=== PATIENT | male | born 1945 | race Caucasian/White ===

== ENCOUNTER → 2016-08-08 | Outpatient (CLI) | payer MEDICARE, OTHER ==
[~2016-08-08] MED LIST: 3N1 COMMODE MC; ASPI-781 PO; BENA40TA41 PO; CPM MC; HYD25 PO; OXYC5CAP17 PO; ROSU5TAB5 PO
--- NOTE | 2016-08-08 11:09 | RADRPT ---
PROCEDURE: XR left knee. CLINICAL INDICATION: Knee pain. TECHNIQUE: AP weightbearing, lateral weightbearing and sunrise views are available for review. COMPARISON: 02/08/2016 FINDINGS: There is a total knee replacement. There is no evidence of loosening of the prosthesis. The osseous structures are normal in mineralization, architecture and alignment No acute fracture or dislocation is seen.No osseous lesions are identified. The soft tissues are unremarkable . there is a suprapat ellar joint effusion. There is vascular calcification. IMPRESSION: Unremarkable total knee replacement. Suprapatellar joint effusion RPTAT: HGDB .Jack Lopez MD, MD Date Time Electronically viewed and signed by .Jack Lopez MD, on 08/08/2016 11:08 .B/
== END | disposition home or self-care (01) ==
LOC: HKI 08:49
PROVIDERS: ATTEND Orthopaedic Surgery
DX: M17.11 Unilateral primary osteoarthritis, right knee (principal); M25.561 Pain in right knee; Z96.652 Presence of left artificial knee joint
CPT/HCPCS: 73562; G0463

== ENCOUNTER → 2016-10-22 | Outpatient (CLI) | payer MEDICARE, OTHER ==
[~2016-10-22] MED LIST changes: +ASPI325T4 PO; +HYDR-905 PO; +PANT40SU PO; +PREG50CA PO
--- NOTE | 2016-10-22 21:05 | RADRPT ---
PROCEDURE: XR bilateral lower extremities. CLINICAL INDICATION: Leg length discrepancy. TECHNIQUE: AP view of the bilateral femurs was obtained. COMPARISON: 08/06/2015 FINDINGS: Right femur length from femoral head to medial femoral condyle is 46.9 cm, previously 46.4 cm. Left femur length from femoral head to medial femoral condyle is 46.3 cm, previously 46.7 cm. There has been interval placement of left total knee arthroplasty prosthesis. Alignment is satisfactory. No evidence of hardware failure. There is no evidence of fracture or dislocation. The bony mineralization appears normal. IMPRESSION: 1. No significant leg length discrepancy involving the femurs. 2. No evidence of fracture or dislocation. 3. Interval placement of left total knee arthroplasty prosthesis with satisfactory alignment and wi thout evidence of hardware failure. 4. Moderate atherosclerotic peripheral vascular disease RPTAT: HLDM .Dani Murphy MD, MD Date Time Electronically viewed and signed by .Dani Murphy MD, on 10/22/2016 21:05 .M/
== END | disposition home or self-care (01) ==
LOC: HKI 09:27
PROVIDERS: ATTEND Orthopaedic Surgery
DX: Z01.818 Encounter for other preprocedural examination (principal); M25.761 Osteophyte, right knee; Z96.652 Presence of left artificial knee joint
CPT/HCPCS: 77073; G0463

== ENCOUNTER 2016-10-30 11:24 | Inpatient (IN) | payer MEDICARE, OTHER ==
[2016-10-22 11:53] VITALS: BMI 38.1
[2016-10-30] VITALS (23 sets, daily range): BP systolic 120–182; BP diastolic 60–100; PULSE 80–98; RESP 11–39; Ht 167.6 cm; Wt 107.0 kg
[~2016-10-30] VITALS: Ht 167.6 cm; Wt 107.0 kg
[~2016-10-30 11:24] MED LIST changes: -ASPI325T4 PO; +BUPIVACAINE LIPOSOME/PF 266 MG/20 ML VIAL INFIL ONE; +CEFAZOLIN 2GM/50 ML (PMX) 50 ML X1 BEFORE INCISION IVPB ONE; +CELECOXIB 400 MG PO X1 DOSE PO ONE; +ETOMIDATE 20 MG INJ ONE; -HYDR-905 PO; +PAIN COCKTAIL-CEFUROXIME IRR ONE; -PANT40SU PO; -PREG50CA PO; +PREGABALIN 300 MG PO X1 PO ONE; +PROPOFOL 1000 MG INJ ONE; +SOD CHLORIDE 0.9% IV ONE; +SOD CHLORIDE 0.9% IVPB ONE; +TRANEXAMIC ACID IV ONE; +TRANEXAMIC ACID IVPB ONE; +oxyCODONE (CR) 10 MG TAB [oxyCONTIN] X1 DOSE PO ONE; +traMADOL 50 MG TAB X 1 DOSE PO ONE
[2016-10-30] MEDS ORDERED: EXPAREL NOTE (BUPIVICAINE LIPOSOMAL) XX SCH (11:30)
[2016-10-30] MEDS ORDERED: GLYCOPYRROLATE 0.4 MG INJ ONE (13:47)
[2016-10-30] MEDS ORDERED: ROCURONIUM 50 MG INJ ONE (13:47)
[2016-10-30] MEDS ORDERED: NEOSTIGMINE 3 MG/3 ML SYRINGE ONE (13:47)
[2016-10-30] MEDS ORDERED: PROPOFOL 20 ML ONE (13:47)
[2016-10-30] MEDS ORDERED: CEFAZOLIN 1 GM INJ ONE (13:47)
[2016-10-30] MEDS ORDERED: MIDAZOLAM 1 MG/ML 2 ML INJ ONE (13:50)
[2016-10-30] MEDS ORDERED: FENTAnyl 50 MCG/ML VIAL ONE (13:50)
[2016-10-30] MEDS ORDERED: DEXAMETHASONE 4 MG/ML 1 ML INJ ONE (13:51)
[2016-10-30] MEDS ORDERED: ONDANSETRON 4 MG INJ ONE (13:51)
[2016-10-30] MEDS ORDERED: KETOROLAC 30 MG INJ ONE (14:18)
--- NOTE | 2016-10-30 14:22 | HPN ---
Date/Time of Note Date/Time of Note DATE: 10/30/16 TIME: 14:21 Interval H&P Admission Note Pt. seen H&P reviewed: No system changes No changes from H&P on 10/20/16 by TERESE Carvalho MD Oct 30, 2016 14:22
--- NOTE | 2016-10-30 14:28 | PDOCDIS ---
Discharge Instructions DIAGNOSIS Discharge Diagnosis: s/p right TKA CONDITION Patient Condition: Good HOME CARE INSTRUCTIONS: Diet Instructions: Regular ACTIVITY: Activity Restrictions: Slowly Increase Activity Rest between Activity Avoid heavy lifting Do not operate Machinery Do not operate Power Tool Avoid Heavy Housework Keep Limb Elevated Weight Bearing Bathing Restrictions: Shower FOLLOW UP/APPOINTMENTS Appointments follow up in the office on 11/10/16 OTHER ORDERS: Other Orders: S/P TKA Physical Therapy: Three times per week at home x 2 weeks Daily in Rehab/SNF WB STATUS: WBAT 1. Strengthening exercises for both upper and un-operated lower extremities. 2. Gait training with front wheeled walker 3. Active range of motion exercises to operative knee. 4. When not working on knee range of motion exercises, distal towel roll under operative ankle/distal calf to promote full extension. 5. DO NOT PUT ANYTHING BEHIND OPERATIVE KNEE!!! 6. Quadriceps and hamstring strengthening. 7. May switch to cane in contra lateral hand 6 weeks after surgery. 8. Physical Therapy can open case if nursing is not available. 9. Use Ice Machine as instructed from date of surgery while at rest 3X/day. 10. Patient requires mobile SCDs to reduce risk of developing DVT following TKA. Patient will use the mobile SCDs for 30 days postoperatively. Bathing assistance by home health aide twice weekly if Medicare patient. Occupational Therapy: Evaluation for assistive devices and ADL training. Wound Care: Keep incision dry & covered with Tegaderm until first visit with Dr. Knox Anticoagulation Orders: Enteric Coated Aspirin 325 mg po bid x 6 weeks from date of surgery Follow-up:Call for an appointment with Dr. Knox in 1 week after discharged from hospital at DME Orders: ADENIKE, 3-in-1 Commode, Polar ice machine, Mobile SCDs PRAVEEN MAIER PA-C Oct 30, 2016 14:28
[2016-10-30] MEDS ORDERED: HYDR-905 PO (14:31)
[2016-10-30] MEDS ORDERED: ASPI325T4 PO (14:31)
[2016-10-30] MEDS ORDERED: PANT40SU PO (14:31)
[2016-10-30] MEDS ORDERED: PREG50CA PO (14:31)
[2016-10-30] MEDS ORDERED: POLYMYXIN B 500000 UNIT INJ ONE (14:49)
[2016-10-30] MEDS ORDERED: BACITRACIN 50000 UNITS INJ ONE (15:10)
[2016-10-30] MEDS ORDERED: LABETALOL HCL 20MG INJ IV PRN (15:30)
[2016-10-30] MEDS ORDERED: ONDANSETRON 4 MG INJ IV PRN ×2 (15:30→18:00)
[2016-10-30] MEDS ORDERED: MEPERIDINE 25 MG INJ IV PRN (15:30)
[2016-10-30] MEDS ORDERED: hydrALAzine 20 MG INJ IV PRN (15:30)
[2016-10-30] MEDS ORDERED: EPHEDrine SULFATE 50 MG/5 ML SYG IV PRN (15:30)
[2016-10-30] MEDS ORDERED: FENTAnyl 50 MCG/ML VIAL IV PRN ×3 (15:30)
[2016-10-30] MEDS ORDERED: HYDROmorphONE (0.2 MG/ML) 10ML SYG IV PRN ×3 (15:30)
[2016-10-30] MEDS ORDERED: TRIMETHOBENZAMIDE 100 MG/ML VIAL IM PRN (15:30)
[2016-10-30] MEDS ORDERED: DIPHENHYDRAMINE 50 MG INJ IV PRN (15:30)
[2016-10-30] MEDS ORDERED: MIDAZOLAM 1 MG/ML 2 ML INJ IV PRN (15:30)
[2016-10-30] MEDS: VANCOMYCIN 1 GM INJ ONE ×2 (15:38→16:03)
[2016-10-30] MEDS: LACTATED RINGER'S 1,000 ML IV SCH ×3 (16:00→18:12)
--- NOTE | 2016-10-30 16:59 | OPR ---
Date/Time of Note Date/Time of Note DATE: 10/30/16 TIME: 16:58 Operative Report Free Text/Dictation Dictation # [id number] Procedure Date: Oct 30, 2016 Preoperative Diagnosis Right Knee OA Postoperative Diagnosis Same Operation Performed Right TKA Surgeon: TERESE GORE MD dental front office assistant: PRAVEEN MAIER PA-C Anesthesia: general, spinal Anesthesiologist: Les Mo M.D. Tourniquet Time: 52 minutes Estimated Blood Loss: 50 - 100 ml's Specimens Bone and soft tissue Tubes/Drains Hemovac x 1 Complications: None Pt Condition Post Procedure: stable Disposition: PACU TERESE GORE MD Oct 30, 2016 16:59
--- NOTE | 2016-10-30 17:13 | OPR ---
DATE OF OPERATION: 10/30/2016 PREOPERATIVE DIAGNOSIS: Right knee osteoarthritis. POSTOPERATIVE DIAGNOSIS: Right knee osteoarthritis. OPERATION PERFORMED: Right total knee arthroplasty. SURGEON: Terese Knox MD PRINT [employer]OP STENOGRAPHER: VIVIENNE Rainey COMPONENTS USED: DePuy Attune size 6 femoral component, size 7 tibial baseplate, 7 mm polyethylene insert, 38 patellar button. ANESTHESIA: Spinal plus general endotracheal intubation, plus periarticular injection. ANESTHESIOLOGIST: Les Mo MD TOURNIQUET TIME: 52 minutes. ESTIMATED BLOOD LOSS: 50 mL. INTRAVENOUS FLUIDS: 2300 mL crystalloid. SPECIMENS: Bone and soft tissue. DRAINS: Hemovac x1. COMPLICATIONS: None. DISPOSITION: The patient tolerated the procedure well and was taken to the recovery room in stable condition. INDICATIONS: The patient is 71-year-old gentleman who has had progressive worsening pain in the [facility] t knee with radiographic evidence of severe osteoarthritis. He has failed nonsurgical means of palma tment to control his pain including activity modifications, pain medications, intra-articular inject ions and ambulatory assist devices. Despite these measures, he has had worsening pain and I felt he would benefit from a total knee arthroplasty. The risks, benefits, and alternatives of the procedure were explained in detail to the patient. I e xplained the risks of the surgery to include but not be limited to, bleeding and possible need for b lood transfusion; infection; pain; stiffness; neurovascular injury with possible numbness, weakness, and/or paralysis anywhere from the knee down to the toes; fracture; instability; dislocation; wear and/or loosening of the prosthesis and possible need for future revision; blood clots; pulmonary emb olism; and anesthetic complications such as heart attack, stroke, GI bleed, pneumonia, and/or . Ample time was allowed for the patient to ask questions, all of which were addressed and answered. The patient understood the risks involved and wished to proceed. Informed consent was signed prior to the procedure. PROCEDURE: The patient's right knee was initialed with a marking pen in the preoperative area to id entify the correct operative site. The patient was brought to the operating room and transferred fr the [facility] to the operating table where a spinal anesthetic was administered. T he patie nt was then anesthetized and intubated. A Mukherjee catheter was placed. A timeout was performed to co nfirm that the right leg was the correct operative site. The patient was given 2 g of Ancef within one hour prior to the procedure. A tourniquet was placed on the operative proximal thigh. The oper ative knee and lower extremity were prepped and draped in the usual sterile fashion. The operative lower extremity was elevated and exsanguinated with an Esmarch tourniquet. The proximal thigh tourn iquet was inflated to 300 mmHg. The knee was flexed. A midline incision was made and carried down through the subcutaneous tissue a nd fat with sharp dissection. Limited medial and lateral flaps were raised. A median parapatellar arthrotomy approach was performed. Synovial fluid was normal in color and consistency. The patella was everted and the knee flexed. There were severe tricompartmental osteoarthritic changes noted. A medial release was performed at the joint line to the midcoronal plane. The ACL and PCL and remnan ts of the menisci were excised. The stepped drill was used to open up the femoral canal which was i rrigated and sucked dry. The intramedullary guide ryan was passed up the femur, and the distal cutti ng block was pinned into place for a 7 degree valgus cut, taking 10 mm of bone off distally. The osc illating saw was used to make the cut. The tibia was subluxed anteriorly. The tibial cutoff jig was placed over the center of the talus d istally and over the junction of the medial and middle third of the tibial tubercle proximally. The guide was pinned into place and the oscillating saw was used to make the cut. The tibia was sized. The extension gap was checked and accommodated the 7 mm spacer block with the knee in full extensio n. There was no varus or valgus instability. At this point, the femur was sized with the posterior referencing guide. Two holes were drilled in 3 degrees of external rotation. The two holes were in line with the transepicondylar axis, perpendi cular to Gita's line, and in line with the tibial cutoff jig brought up with the knee flexed 90 degrees and tensed with 2 lamina spreaders, suggesting the femoral rotation was correct. The four- in-one cutting block was pinned into place. The anterior and posterior cuts and chamfer cuts were m emilia with the oscillating saw. The flexion gap was checked and accommodated the 7 mm spacer block at 90 degrees. There was no varus or valgus instability, suggesting the flexion and extension gaps we re now equal. The central box was cut out on the femur. The tibia was drilled and punched in proper rotation. Tri al components were placed into position with a trial insert. The patella was cut from 25 mm to down to 16 mm and sized. Three holes were drilled and the trial button placed in position. With all th e trials now in place, the knee was taken through range of motion and came to full extension as evid enced by the fact that with the foot on my abdomen and axial loading, there was no tendency for the knee to flex. The knee was able to be flexed to 125 degrees with good patellar tracking with no lat eral tilt or subluxation. At this point, I was satisfied with the overall range of motion, stabilit y, and patellar tracking. The trials were removed. The real components were opened. Two bags of cement were mixed, one with and one without premixed antibiotic. The knee was irrigated with antibiotic saline and sucked dry. Once the cement was in a doughy stage, the real components were cemented into place. The knee was held in full extension, and the patellar component was held with a patellar clamp. All excess cemen t was removed with curettes. As the cement was hardening, the synovial/capsular layer was infiltrat ed with a mixture of 150 mg of 0.5% bupivacaine, 8 mg of Duramorph, 300 mcg of epinephrine, 30 mg of Toradol, 100 mcg of clonidine, 750 mg of cefuroxime and 86 mL of normal saline, followed by an inje ction of 266 mg of liposomal bupivacaine. A Hemovac drain was placed in the deep portion of the wound and brought out the anterolateral thigh. Once the cement was completely hardened, the trial liner was removed, and the real insert was open ed. The tourniquet was let down, and there was good hemostasis. The knee was then irrigated with a mixture of Betadine/saline and then antibiotic saline with pulsatile lavage. The real insert was i mpacted into the tibia and reduced onto to the femur. The arthrotomy was closed with a few interrupted #1 Ethibond in a rzuqtk-fo-aifua fashion, and then closed in a watertight fashion with a running #2 Stratafix suture. Knee flexion was checked against gravity and came to 125 degrees. The subcutaneous layer was irrigated and closed with 2-0 Stratafi x, and then 3-0 Vicryl and then miguel on the skin. The wound was covered with an occlusive dressi ng, and secured with cast padding and a bias dressing. The drain was secured with 3-0 nylon. The sponge and needle counts were correct at the end of the case. The patient was then awakened, ex tubated, and taken to the recovery room in stable condition. Dictated By: TERESE DAY/NTS Conf#: [id number] DID#: [id number]
--- NOTE | 2016-10-30 17:42 | PN ---
Date/Time of Note Date/Time of Note DATE: 10/30/16 TIME: 17:38 Assessment/Plan Lines/Catheters IV Catheter Type (from Nrsg): Peripheral IV Assessment/Plan Assessment/Plan Stable in PACU, s/p right TKA -continue Ancef until drain removed -pain meds as needed -ASA/SCDs for DVT prophylaxis -OOB with PT -check AM labs -monitor drain -d/c patel in AM XR of the right knee is pending at this time Subjective 24 Hr Interval Summary Stable in PACU. Denies pain. Moving all extremities well. Exam/Review of Systems Vital Signs Vitals Vital Signs Date Time Temp Pulse Resp B/P Pulse Ox O2 Delivery O2 Flow Rate FiO2 10/30/16 13:13 98.0 80 18 146/68 98 Exam Free Text/Dictation Hemovac: minimal Dressing dry Incision clean, dry, and intact without redness or drainage Thigh soft 5/5 Quadriceps, Tibialis Anterior, EHL, Gastroc, Soleus, Peroneals Normal sensation Palpable DT/PT, CR <2 sec No distal edema PRAVEEN MAIER PA-C Oct 30, 2016 17:41
[2016-10-30 17:48] LABS: HEMATOCRIT 40.7 % (42.0-52.0); HEMOGLOBIN 13.2 g/dl (14.0-18.0)
[2016-10-30] MEDS ORDERED: HYDROCODONE/APAP (5/325) TAB PO PRN (18:00)
[2016-10-30] MEDS ORDERED: ASPIRIN (EC) 325 MG TAB PO ONE (18:00)
[2016-10-30] MEDS ORDERED: MAGNESIUM HYDROXIDE 30ML CUP PO PRN (18:00)
[2016-10-30] MEDS ORDERED: DIPHENHYDRAMINE 25 MG CAP PO PRN (18:00)
[2016-10-30] MEDS ORDERED: NA PHOSPHATE/BIPHOS 133 ML ENEMA PR PRN (18:00)
[2016-10-30] MEDS ORDERED: BISACODYL 10 MG SUPP PR PRN (18:00)
[2016-10-30] MEDS ORDERED: NACL 0.9% 3 ML SYG IV SCH (18:00)
[2016-10-30] MEDS ORDERED: HYDROmorphONE 1 MG/ML SYG IV PRN (18:00)
[2016-10-30 18:10] LABS: CALCIUM 8.4 mg/dl (8.4-10.2); CREATININE 0.98 mg/dl (0.61-1.24); POTASSIUM 4.4 mmol/L (3.5-5.1)
[2016-10-30] MEDS: CEFAZOLIN 2 GM/50 ML (PMX) 50 ML IVPB SCH (18:17)
--- NOTE | 2016-10-30 19:12 | RADRPT ---
PROCEDURE: XR Knee. CLINICAL INDICATION: Postoperative x-ray. TECHNIQUE: 2 views of the right knee. COMPARISON: 10/29/2016 FINDINGS: The patient is status post total knee arthroplasty with patellar resurfacing. Osseous alignment is a natomic. There are postoperative changes in the adjacent soft tissues. A surgical drain and skin s taples project along the knee. IMPRESSION: 1. Status post total knee arthroplasty. RPTAT: HTAR .Damian Schmidt MD, MD Date Time Electronically viewed and signed by .Damian Schmidt MD, on 10/30/2016 19:12 .R/
[2016-10-30] MEDS: traMADol 50 MG TAB PO SCH (20:13)
[2016-10-30] MEDS: PANTOPRAZOLE (EC) 40 MG TAB PO SCH (20:13)
[2016-10-30] MEDS ORDERED: SOD CHLORIDE 0.9% IVPB ONE (21:00)
[2016-10-30] MEDS ORDERED: TRANEXAMIC ACID IVPB ONE (21:00)
[2016-10-30] MEDS: DOCUSATE SODIUM 100 MG CAP PO SCH (22:08)
[2016-10-30] MEDS: PREGABALIN 50 MG CAP PO SCH (22:08)
[2016-10-31] MEDS ORDERED: TRANEXAMIC ACID IVPB ONE ×2
[2016-10-31] MEDS ORDERED: SOD CHLORIDE 0.9% IVPB ONE ×2
[2016-10-31] MEDS: LACTATED RINGER'S 1,000 ML IV SCH ×3 (00:12→17:31)
[2016-10-31 01:00] VITALS: BP 132/65; RESP 18
[2016-10-31] MEDS: CEFAZOLIN 2 GM/50 ML (PMX) 50 ML IVPB SCH ×2 (02:15→10:03)
[2016-10-31 04:56] LABS: HEMATOCRIT 36.2 % (42.0-52.0); HEMOGLOBIN 11.9 g/dl (14.0-18.0)
[2016-10-31 05:28] LABS: CALCIUM 8.2 mg/dl (8.4-10.2); POTASSIUM 4.2 mmol/L (3.5-5.1)
[2016-10-31 05:37] VITALS: BP 134/65; PULSE 78; RESP 18
[2016-10-31 06:09] LABS: ADD UMIC YES; URINE BILIRUBIN (Dip) NEGATIVE (NEGATIVE); URINE BLOOD (Dip) TRACE (NEGATIVE); URINE COLOR LT. YELLOW (YELLOW); URINE GLUCOSE (Dip) NEGATIVE (NEGATIVE); URINE KETONES (Dip) NEGATIVE (NEGATIVE); URINE LEUKOCYTE ESTERASE (Dip) NEGATIVE (NEGATIVE); URINE NITRITE (Dip) NEGATIVE (NEGATIVE); URINE TOTAL PROTEIN (Dip) NEGATIVE (NEGATIVE); URINE UROBILINOGEN (Dip) 0.2 E.U./dL (0.1-1.0)
[2016-10-31] MEDS: PANTOPRAZOLE (EC) 40 MG TAB PO SCH ×2 (06:26→17:38)
[2016-10-31] MEDS: traMADol 50 MG TAB PO SCH ×4 (06:26→17:38)
[2016-10-31 06:48] LABS: BACTERIA,URINE RARE; URINE RBCS 0-2 /HPF (0)
[2016-10-31 07:00] VITALS: BP 130/57; RESP 18
[2016-10-31] MEDS: ASPIRIN (EC) 325 MG TAB PO SCH ×2 (08:39→20:41)
[2016-10-31] MEDS: DOCUSATE SODIUM 100 MG CAP PO SCH ×2 (08:39→20:40)
[2016-10-31] MEDS: PREGABALIN 50 MG CAP PO SCH ×2 (08:39→20:41)
[2016-10-31] MEDS: HYDROCHLOROTHIAZIDE 25 MG TAB PO SCH (08:40)
[2016-10-31] MEDS: BENAZEPRIL 40 MG TAB PO SCH (08:40)
--- NOTE | 2016-10-31 08:57 | PN ---
Date/Time of Note Date/Time of Note DATE: 10/31/16 TIME: 08:56 Assessment/Plan Lines/Catheters IV Catheter Type (from Nrsg): Peripheral IV Mukherjee in Place (from Nrsg): Yes Assessment/Plan Assessment/Plan POD # 1. Stable. -Drain d/c'd -OOB with PT -Pain meds -E.C. ASA plus bilateral SCDs for DVT prophylaxis -Possible d/c to home tomorrow or Thursday Subjective 24 Hr Interval Summary Comfortable. Minimal pain. Exam/Review of Systems Vital Signs Vitals Vital Signs Date Time Temp Pulse Resp B/P Pulse Ox O2 Delivery O2 Flow Rate FiO2 10/31/16 07:00 98.1 84 18 130/57 97 10/31/16 05:37 Nasal Cannula 2.0 Intake and Output 10/30/16 10/30/16 10/31/16 15:00 23:00 07:00 Intake Total 2730.7 ml 560.7 ml Output Total 300 ml 1090 ml Balance 2430.7 ml -529.3 ml Exam Free Text/Dictation Hemovac: 50 cc Dressing dry Incision clean, dry, and intact without redness or drainage 5/5 Tibialis Anterior, EHL, Gastroc Soleus, Peroneals Normal sensation Palpable DP/PT, CR < 2 Sec No distal edema Results Result Diagram: 10/31/16 0425 10/31/16 0425 TERESE GORE MD Oct 31, 2016 08:57
--- NOTE | 2016-10-31 09:03 | CONS ---
DATE OF ADMISSION: 10/30/2016 DATE OF CONSULTATION: TYPE OF CONSULTATION: Medical. Thank you, Dr. Knox, for asking me to participate in the medical management of this patient. REASON FOR CONSULTATION: To manage the patient's hypertension and hyperlipidemia. HISTORY OF PRESENT ILLNESS: This 71-year-old man is now postop a right total knee arthroplasty. Th e patient was having increasing pain in the right knee. He failed medical therapy. The patient was seen preoperatively by his primary care physician, Dr. Leigh Nieto, and was [facility]. She does have a dictated note on the chart. PAST MEDICAL HISTORY: 1. Hypertension. 2. Osteoarthritis. 3. Low testosterone with erectile dysfunction. 4. Hypertension. PAST SURGICAL HISTORY: 1. Left knee arthroscopic surgery for a torn meniscus. 2. Left knee total knee arthroplasty. ALLERGIES: LIPITOR, ELEVATED CPK. CURRENT MEDICATIONS: Include the followin. Benazepril 40 mg a day. 2. Hydrochlorothiazide 25 mg a day. 3. Crestor 5 mg a day. SOCIAL HISTORY: The patient is . He is retired. He is a former smoker. He does not drink alcohol. FAMILY HISTORY: Mother, vascular dementia. Father, dementia. Sister is alive, with coronary arter y disease, CVA, and hyperlipidemia. PHYSICAL EXAMINATION: GENERAL: At this time reveals a well-developed man, in no apparent distress. VITAL SIGNS: Temperature 98.2, pulse of 78, respirations 18, blood pressure 134/65, O2 saturation 9 5% on 2 liters nasal cannula. HEENT: Head normocephalic. Eyes, extraocular muscles intact. NOSE AND MOUTH: Normal. NECK: Supple. No neck vein distention. LUNGS: Clear to auscultation. HEART: Regular rhythm. No murmurs, gallops or rubs. ABDOMEN: Soft, nontender. EXTREMITIES: No peripheral edema. IMPRESSION: The patient is doing well 1 day after having a right total knee arthroplasty. The mark ent's vital signs are acceptable. His blood pressure is normal. I will follow the patient and I wi ll manage his hypertension, and hyperlipidemia. PLAN: 1. Resume routine medications. 2. Labs were done today, which are acceptable. 3. Postop total knee replacement protocol. 4. I will follow the patient along with you medically. Dictated By: TATY SUMNER MD ND/RICHARD Conf#: [id number] DID#: [id number]
[2016-10-31] MEDS: HYDROCODONE/APAP (5/325) TAB PO PRN ×2 (10:03→14:45)
[2016-10-31 12:21] VITALS: BP 114/59; PULSE 75; RESP 16
[2016-10-31 19:00] VITALS: BP 138/65; RESP 19
[2016-11-01] MEDS: traMADol 50 MG TAB PO SCH ×3 (01:00→12:23)
[2016-11-01] MEDS: LACTATED RINGER'S 1,000 ML IV SCH ×2 (01:31→09:31)
[2016-11-01 05:18] LABS: HEMATOCRIT 36.9 % (42.0-52.0); HEMOGLOBIN 12.1 g/dl (14.0-18.0)
[2016-11-01 05:41] LABS: CALCIUM 8.4 mg/dl (8.4-10.2); CREATININE 1.11 mg/dl (0.61-1.24); POTASSIUM 4.1 mmol/L (3.5-5.1)
[2016-11-01] MEDS: PANTOPRAZOLE (EC) 40 MG TAB PO SCH (05:48)
--- NOTE | 2016-11-01 08:51 | PN ---
Date/Time of Note Date/Time of Note DATE: 11/01/16 TIME: 08:46 Assessment/Plan VTE Prophylaxis VTE Prophylaxis Intervention: ambulation, SCD's, other (Aspirin 325 mg twice daily) Lines/Catheters IV Catheter Type (from Nrsg): Saline Lock Mukherjee in Place (from Nrsg): Yes Assessment/Plan Assessment/Plan -Pain Meds as needed -Dress change performed today -ASA for DVT Prophylaxis x 6 weeks outpatient discussed. -Continue monitoring as outpatient on discharge -Follow-up at scheduled postop outpatient appointment at 10 days postop or sooner if there is any issue. -Tegaderm dressings given with specific instructions to use as outpatient to keep wound dry until miguel are moved around 10 days. -Patient Stable -Discharge to Home with home health. Subjective 24 Hr Interval Summary 71-year-old male postop day 2 status post right total knee arthroplasty. Patient continues to do well. Complains of occasional 4/10 pain with physical therapy in regards to gait training. Patient states that he is able to sit and lie down in bed comfortably with no issues. No pain at rest. Patient is ready to go home today. Denies any chest pain/tightness. Denies any calf pain or shortness of breath. Pain Control: well controlled Exam/Review of Systems Vital Signs Vitals Vital Signs Date Time Temp Pulse Resp B/P Pulse Ox O2 Delivery O2 Flow Rate FiO2 10/31/16 19:00 98.5 76 19 138/65 94 10/31/16 12:21 Room Air 10/31/16 05:37 2.0 Intake and Output 10/31/16 10/31/16 11/01/16 15:00 23:00 07:00 Intake Total 50 ml 1000 ml 1050 ml Output Total 950 ml Balance 50 ml 1000 ml 100 ml Exam Free Text/Dictation -Hemovac: Removed -Pain Cocktail Drains: Intact -Incision: Clean, Dry and Intact without any redness or drainage -5/5 Tibialis Anterior, EHL Gastrocnemius/Soleus and Peroneals -Normal Sensation -Palpable DP/PT, Capillary Refill <2 secs -No Distal Edema -Negative Ceasar Sign/No calf pain -Toes Freely Movable Constitutional: alert, oriented, well developed Results Result Diagram: 11/01/16 0430 11/01/16 0430 TERRY MONTES PA-C Nov 01, 2016 08:51
[2016-11-01 09:18] VITALS: BP 155/72; RESP 19
[2016-11-01] MEDS: DOCUSATE SODIUM 100 MG CAP PO SCH (09:36)
[2016-11-01] MEDS: ASPIRIN (EC) 325 MG TAB PO SCH (09:36)
[2016-11-01] MEDS: BENAZEPRIL 40 MG TAB PO SCH (09:36)
[2016-11-01] MEDS: HYDROCHLOROTHIAZIDE 25 MG TAB PO SCH (09:36)
[2016-11-01] MEDS: PREGABALIN 50 MG CAP PO SCH (09:38)
--- NOTE | 2016-11-01 22:43 | DS ---
DATE OF ADMISSION: 10/30/2016 DATE OF DISCHARGE: 11/01/2016 CONDITION ON DISCHARGE: Stable. ADMITTING DIAGNOSIS: Right knee osteoarthritis. DISCHARGE DIAGNOSIS: Status post right total knee arthroplasty. PROCEDURE PERFORMED: Right total knee arthroplasty. HOSPITAL COURSE: This is a 71-year-old male who was seen in the clinic initially complaining of rig ht knee pain. He had undergone conservative modalities unsuccessfully and it was thought he would b enefit from a right total knee arthroplasty. On 10/30/2016, the patient was admitted and taken to [facility] operating room, where he underwent a right total knee arthroplasty. There were no intraoperative complications. The patient tolerated the procedure well. He was taken to the recovery room in sta ble condition. Pain was well controlled with oral pain medication. He was started on aspirin and S CDs for DVT prophylaxis. He remained hemodynamically stable and neurovascularly intact throughout h is hospital stay. He began physical therapy during his hospital course. He continued to make good progress. He was deemed stable for discharge home on postoperative day 2. Prior to discharge, the incision was inspected and noted to be clean, dry and intact. Dressing changes were done prior to p atient going home. LABORATORY ANALYSIS: Hemoglobin 12.1, hematocrit 36.9. Chemistry panel was within normal limits. DISCHARGE MEDICATIONS: 1. [place] 7.5/325 mg. 2. Tramadol 50 mg. 3. Aspirin 325 mg. 4. Protonix 40 mg. 5. Lyrica 50 mg. 6. Additionally, the patient should resume all his normal home medications. DISCHARGE INSTRUCTIONS: The patient will be discharged home in stable condition. He is to resume a normal diet. He is weightbearing as tolerated on right lower extremity. He will begin physical th erapy with home health. He will be discharged home with the medications noted above and is to resum e all his normal home medication. Patient is to call the office or go to the emergency room for any concerns including increased redness, swelling, drainage, fever or any concern regarding the operat ion or site of incision. Patient is to follow up in the office in 11/03/2016. Dictated By: PRAVEEN PALAFOX for TERESE ALEXIS/RICHARD Conf#: [id number] DID#: [id number]
== END 2016-11-01 13:10 | disposition home health service (06) | DRG 470 ==
LOC: REC 11:24 → MS1 20:30
PROVIDERS: ADMIT Orthopaedic Surgery; ATTEND Orthopaedic Surgery
PROC: 0SRC0J9 Replacement of Right Knee Joint with Synthetic Substitute, Cemented, Open Approach (ICD-10-PCS; principal; 2016-10-30 15:00)
DX: M17.11 Unilateral primary osteoarthritis, right knee (principal); I10 Essential (primary) hypertension; E78.5 Hyperlipidemia, unspecified
CPT/HCPCS: 73560; 80048; 81001; 82962; 85014; 85018; 86850; 86900; 86901; 86920; 87081; 87086; 88304; 88311; 97116; 97163; 97530; C1776; C9290; J0171; J0360; J0690; J0697; J0735; J1100; J1885; J2250; J2274; J2405; J2710; J3010; J3370; J7120

== ENCOUNTER → 2016-11-10 | Outpatient (CLI) | payer MEDICARE, OTHER ==
[~2016-11-10] MED LIST changes: -3N1 COMMODE MC; -ASPI-781 PO; +ASPI325T4 PO; -BUPIVACAINE LIPOSOME/PF 266 MG/20 ML VIAL INFIL ONE; -CEFAZOLIN 2GM/50 ML (PMX) 50 ML X1 BEFORE INCISION IVPB ONE; -CELECOXIB 400 MG PO X1 DOSE PO ONE; -CPM MC; -ETOMIDATE 20 MG INJ ONE; +HYDR-905 PO; -OXYC5CAP17 PO; -PAIN COCKTAIL-CEFUROXIME IRR ONE; +PANT40SU PO; +PREG50CA PO; -PREGABALIN 300 MG PO X1 PO ONE; -PROPOFOL 1000 MG INJ ONE; -ROSU5TAB5 PO; -SOD CHLORIDE 0.9% IV ONE; -SOD CHLORIDE 0.9% IVPB ONE; -TRANEXAMIC ACID IV ONE; -TRANEXAMIC ACID IVPB ONE; -oxyCODONE (CR) 10 MG TAB [oxyCONTIN] X1 DOSE PO ONE; -traMADOL 50 MG TAB X 1 DOSE PO ONE
--- NOTE | 2016-11-10 10:46 | RADRPT ---
PROCEDURE: XR left knee. CLINICAL INDICATION: Knee pain. TECHNIQUE: AP weightbearing and lateral weightbearing views are available for review. COMPARISON: 10/30/2016 FINDINGS: There is a total knee replacement. There is no evidence of loosening of the prosthesis. There is no evidence of hardware failure. The osseous structures are normal in mineralization, architecture and alignment No acute fracture or dislocation is seen.No osseous lesions are identified. The soft tiss ues are unremarkable . IMPRESSION: Unremarkable total knee replacement. RPTAT: HGDB .Jack Lopez MD, MD Date Time Electronically viewed and signed by .Jack Lopez MD, MD on 11/10/2016 10:45 .B/
--- NOTE | 2016-11-10 11:34 | HKNOTE ---
DATE OF SERVICE: 11/10/2016 INTERVAL HISTORY: The patient presents today for his first postoperative evaluation. He is 10 days status post right total knee arthroplasty. He is doing well overall. He denies any significant pain. He is doing physical therapy at home. He denies any fevers, chills. He is taking aspirin twice daily for DVT prophylaxis. He presents today for first postoperative evaluation. PHYSICAL EXAMINATION: Today, he is alert and oriented x4, and in no acute distress. The right knee demonstrates miguel to be in place. The incision is clean, dry, and intact. Range of motion 0 to 100 degrees. Varus and valgus forces are stable. There is some mild swelling, but there is no erythema or warmth noted. Compartments are soft. Does have some ecchymosis predominantly in the posterior aspect of the leg. Homans sign is negative, however. He is neurovascularly intact distally. IMAGING: X-rays of the right knee were obtained today and reviewed by me. They demonstrate good anatomic alignment with no fractures or dislocations identified. ASSESSMENT: Ten days status post right total knee arthroplasty. PLAN: The miguel were removed today and Steri-Strips were applied. He is to continue physical therapy with home health. Additionally he is to continue aspirin twice daily for DVT prophylaxis. We will see him back in 4 weeks for repeat evaluation. Dictated By: PRAVEEN PALAFOX for TERESE ALEXIS/RICHARD Conf#: [id number] DID#: [id number] MARTINAD
== END | disposition home or self-care (01) ==
LOC: HKI 09:49
PROVIDERS: ATTEND Orthopaedic Surgery
DX: Z47.1 Aftercare following joint replacement surgery (principal); Z96.651 Presence of right artificial knee joint

== ENCOUNTER → 2016-12-08 | Outpatient (CLI) | payer MEDICARE, OTHER | END | disposition home or self-care (01) | LOC: HKI 08:45 | PROVIDERS: ATTEND Orthopaedic Surgery | DX: Z47.1 Aftercare following joint replacement surgery (principal); M17.11 Unilateral primary osteoarthritis, right knee; Z96.651 Presence of right artificial knee joint ==